=== PATIENT | female | born 1930 | race Caucasian/White ===

== ENCOUNTER → 2017-09-20 | Outpatient (CLI) | payer OTHER ==
[~2017-09-20] MED LIST: ALLO100 PO; AMLO5 PO; ATEN; ATEN100 PO; ATEN25; ATEN50; BUME2 PO; CALC.25 PO; CAND16; CAND32; CAND32 PO; CAND4; CETI5 PO; CLON.1 PO; CODACE30 PO; CYCL10 PO; DOXA1; DOXA4; Estradiol0.5 MG PO; FLUV20; FLUV40; FLUV80CR PO; FOLI400 PO; FURO40 PO; Ferosul325 MG PO; GABA300 PO; GAVILAX17 GM PO; HYDCHL12.5; HYDR1TAB94 PO; HYDRA25 PO; MEDR2.5 PO; METF500; NEBI5 PO; NITR100 PO; OLME20; OLME20 PO; POTA10T PO; Prilosec Otc20 MG PO; Pyridium200 MG PO; ROXICODONE5 MG PO; SULTRIDS PO; TRAM50; TRAZ50 PO; WARF1; WARF2.5 PO; WARF5 PO; ZOLP10 PO; Zofran4 MG PO; [UNRECOGNIZED DRUG - REMARK]
[2017-09-20 16:34] LABS: Hematocrit 33.4 % (33.0-51.0); Hemoglobin 10.9 g/dL (11.5-16.0)
[2017-09-20 18:05] LABS: Albumin, Blood 3.9 g/dL (3.4-5.0); Anion Gap 11 mmol/L (6-16); Blood Urea Nitrogen 31 mg/dL (8-24); Bun/Creatinine Ratio 18.5 (12.0-20.0); CO2, Blood 20 mmol/L (21-32); Calcium, Blood 9.1 mg/dL (8.5-10.1); Chloride, Blood 103 mmol/L (98-108); Creatinine, Blood 1.68 mg/dL (0.40-1.00); Glomerular Filtration Rate 31 (60-); Glucose, Blood 151 mg/dL (70-99); Phosphorus, Blood 3.6 mg/dL (2.5-4.9); Potassium, Blood 4.4 mmol/L (3.5-5.5); Sodium, Blood 134 mmol/L (136-145)
== END | disposition home or self-care (01) ==
LOC: OLS 13:24
PROVIDERS: Internal Medicine
DX: N18.3 Chronic kidney disease, stage 3 (moderate) (principal); D63.1 Anemia in chronic kidney disease
CPT/HCPCS: 36415; 80069; 83970; 85014; 85018

== ENCOUNTER → 2018-01-24 | Outpatient (CLI) | payer OTHER ==
[2018-01-24 15:47] LABS: Hematocrit 30.9 % (33.0-51.0); Hemoglobin 10.4 g/dL (11.5-16.0)
[2018-01-24 16:15] LABS: Albumin, Blood 3.8 g/dL (3.4-5.0); Anion Gap 8 mmol/L (6-16); Blood Urea Nitrogen 20 mg/dL (8-24); Bun/Creatinine Ratio 13.5 (12.0-20.0); CO2, Blood 27 mmol/L (21-32); Calcium, Blood 9.5 mg/dL (8.5-10.1); Chloride, Blood 97 mmol/L (98-108); Creatinine, Blood 1.48 mg/dL (0.40-1.00); Glomerular Filtration Rate 35 (60-); Glucose, Blood 110 mg/dL (70-99); Potassium, Blood 4.7 mmol/L (3.5-5.5); Sodium, Blood 132 mmol/L (136-145)
[2018-01-24 16:16] LABS: Percent Saturation 33.5 % (15.0-50.0)
== END ==
LOC: LAB SHORT 13:44
PROVIDERS: Internal Medicine
DX: N18.3 Chronic kidney disease, stage 3 (moderate) (principal); D63.1 Anemia in chronic kidney disease
CPT/HCPCS: 36415; 80069; 82728; 83540; 83550; 85014; 85018

== ENCOUNTER 2018-04-17 15:17 | Emergency (ER) | payer OTHER ==
[~2018-04-17] VITALS: Ht 152.4 cm; Wt 72.6 kg
== END 2018-04-17 17:04 | disposition home or self-care (01) ==
LOC: ER 15:17
DX: S62.324A Displaced fracture of shaft of fourth metacarpal bone, right hand, initial encounter for closed fracture (principal); W18.11XA Fall from or off toilet without subsequent striking against object, initial encounter; Z88.2 Allergy status to sulfonamides; Z88.5 Allergy status to narcotic agent; Z79.899 Other long term (current) drug therapy; I10 Essential (primary) hypertension; I48.91 Unspecified atrial fibrillation
CPT/HCPCS: 29125; 73110; 73130; 99283-25

== ENCOUNTER → 2018-09-12 | Outpatient (CLI) | payer OTHER ==
[2018-09-12 17:00] LABS: Bilirubin, Urine Neg (Neg); Blood, Urine 1+ (Neg); Glucose Qualitative, Urine Neg (Neg); Ketones, Urine Neg (Neg); Leukocyte Esterase, Urine 2+ (Neg); Nitrite, Urine Pos (Neg); Protein, Urine 2+ (Neg); Specific Gravity, Urine 1.015 (1.003-1.022); Urobilinogen, Urine NORM (Normal)
[2018-09-12 17:28] LABS: Appearance, Urine Hazy (Clear); Color, Urine Yellow (P-Yellow)
[2018-09-12 17:29] LABS: Squamous Epithelial Cells Few /hpf (Few)
[2018-09-12 17:30] LABS: Bacteria Few /hpf
== END | disposition home or self-care (01) ==
LOC: LAB SHORT 16:29 → LAB 16:29
PROVIDERS: Registered Nurse
DX: N39.0 Urinary tract infection, site not specified (principal)
CPT/HCPCS: 81001; 87077; 87086; 87186

== ENCOUNTER → 2018-10-02 | Outpatient (CLI) | payer OTHER | END | disposition home or self-care (01) | LOC: LAB SHORT 14:11 → LAB 14:11 → LAB FUT 10-02 09:35 | DX: R19.7 Diarrhea, unspecified (principal); I12.9 Hypertensive chronic kidney disease with stage 1 through stage 4 chronic kidney disease, or unspecified chronic kidney disease; N18.3 Chronic kidney disease, stage 3 (moderate) | CPT/HCPCS: 87015; 87045; 87046; 87177; 87205; 87209; 87493; 87899 ==

== ENCOUNTER 2019-01-28 13:34 | Emergency (ER) | payer OTHER ==
[~2019-01-28] VITALS: Ht 162.6 cm; Wt 68.0 kg
[~2019-01-28 13:34] MED LIST changes: -ALLO100 PO; -AMLO5 PO; -Estradiol0.5 MG PO; -FOLI400 PO; -Ferosul325 MG PO; -GABA300 PO; -GAVILAX17 GM PO; -HYDRA25 PO; +LOPE2C PO; -MEDR2.5 PO; -NEBI5 PO; -OLME20 PO; -POTA10T PO; +TYLECOD3 PO
[2019-01-28] MEDS ORDERED: BUDE6HFA INH (14:23)
[2019-01-28] MEDS ORDERED: ALBU90OI6 INH (14:23)
[2019-01-28] MEDS ORDERED: MIRT15ST PO (14:23)
[2019-01-28] MEDS ORDERED: LEVSOD100 PO (14:24)
[2019-01-28] MEDS ORDERED: TYLECOD3 PO (14:24)
[2019-01-28] MEDS ORDERED: Zocor20 MG PO (14:27)
[2019-01-28] MEDS ORDERED: OMEPRAZOLE20 MG PO (14:27)
[2019-01-28 14:47] LABS: BASOPHILS ABSOLUTE AUTO 0.06 K/mm3 (0.00-0.23); BASOPHILS PERCENT AUTO 1 % (0-2); EOSINOPHILS ABSOLUTE AUTO 0.19 K/mm3 (0.00-0.68); EOSINOPHILS PERCENT AUTO 3 % (0-6); Hematocrit 31.2 % (33.0-51.0); Hemoglobin 10.3 g/dL (11.5-16.0); IMMATURE GRAN ABSOLUTE AUTO 0.02 K/mm3 (0.00-0.10); IMMATURE GRAN PERCENT AUTO 0 % (0-1); LYMPHOCYTES ABSOLUTE AUTO 1.94 K/mm3 (0.84-5.20); LYMPHOCYTES PERCENT AUTO 29 % (21-46); MONOCYTES PERCENT AUTO 11 % (4-13); Mean Corpuscular HGB 34.9 pg (26.0-34.0); Mean Corpuscular Volume 106 fL (80-100); Mean Platelet Volume 10.7 fL (9.1-12.4); NEUTROPHILS ABSOLUTE AUTO 3.74 K/mm3 (1.96-9.15); NEUTROPHILS PERCENT AUTO 56 % (41-73); Platelet Count 364 K/mm3 (150-400); RDW Coefficient Variation 14.7 % (11.7-14.2); RDW Standard Deviation 57.1 fL (35.1-46.3); Red Blood Cell Count 2.95 M/mm3 (3.80-5.20); White Blood Cell Count 6.65 K/mm3 (4.00-11.30)
[2019-01-28 15:17] LABS: Alanine Aminotransfer (ALT/SGP 19 U/L (12-78); Albumin, Blood 3.9 g/dL (3.4-5.0); Albumin/Globulin Ratio 1.1 (0.8-1.8); Alk Phos 60 U/L (50-136); Anion Gap 7 mmol/L (6-16); Aspartate Aminotrans (AST/SGOT 17 U/L (12-37); Bilirubin, Total 1.1 mg/dL (0.1-1.0); Blood Urea Nitrogen 30 mg/dL (8-24); Bun/Creatinine Ratio 20.7 (12.0-20.0); CO2, Blood 24 mmol/L (21-32); Calcium, Blood 9.4 mg/dL (8.5-10.1); Chloride, Blood 103 mmol/L (98-108); Creatinine, Blood 1.45 mg/dL (0.40-1.00); Globulin, Blood 3.7 g/dL (2.2-4.0); Glomerular Filtration Rate 36 (60-); Glucose, Blood 121 mg/dL (70-99); Magnesium, Blood 2.1 mg/dL (1.6-2.4); Potassium, Blood 4.2 mmol/L (3.5-5.5); Sodium, Blood 134 mmol/L (136-145); Total Protein, Blood 7.6 g/dL (6.4-8.2); Troponin I <0.015 ng/mL (0.000-0.040)
[2019-01-28] MEDS ORDERED: Ativan0.5 MG PO (22:54)
== END 2019-01-28 23:15 | disposition home or self-care (01) ==
LOC: ER 13:34
PROVIDERS: Physician Assistant
DX: R06.00 Dyspnea, unspecified (principal); R00.1 Bradycardia, unspecified; Z88.2 Allergy status to sulfonamides; Z88.5 Allergy status to narcotic agent; Z79.899 Other long term (current) drug therapy; I12.9 Hypertensive chronic kidney disease with stage 1 through stage 4 chronic kidney disease, or unspecified chronic kidney disease; N18.3 Chronic kidney disease, stage 3 (moderate); I48.91 Unspecified atrial fibrillation; E78.5 Hyperlipidemia, unspecified
CPT/HCPCS: 36415; 71045; 71260; 80053; 83735; 83880; 84484; 85025; 85379; 93005; 93010; 96360-59; 99285-25; J7030; Q9967

== ENCOUNTER 2019-02-07 11:11 | Observation (INO) | payer OTHER ==
[~2019-02-07] VITALS: Ht 162.6 cm; Wt 67.0 kg
[~2019-02-07 11:11] MED LIST changes: +ALBU90OI6 INH; +Ativan0.5 MG PO; +BUDE6HFA INH; +LEVSOD100 PO; +MIRT15ST PO; +OMEPRAZOLE20 MG PO; +Zocor20 MG PO
[2019-02-07 13:35] LABS: BASOPHILS ABSOLUTE AUTO 0.02 K/mm3 (0.00-0.23); BASOPHILS PERCENT AUTO 0 % (0-2); EOSINOPHILS ABSOLUTE AUTO 0.09 K/mm3 (0.00-0.68); EOSINOPHILS PERCENT AUTO 2 % (0-6); Hematocrit 28.5 % (33.0-51.0); Hemoglobin 9.6 g/dL (11.5-16.0); IMMATURE GRAN ABSOLUTE AUTO 0.02 K/mm3 (0.00-0.10); IMMATURE GRAN PERCENT AUTO 0 % (0-1); LYMPHOCYTES ABSOLUTE AUTO 1.34 K/mm3 (0.84-5.20); LYMPHOCYTES PERCENT AUTO 27 % (21-46); MONOCYTES ABSOLUTE AUTO 0.65 K/mm3 (0.16-1.47); MONOCYTES PERCENT AUTO 13 % (4-13); Mean Corpuscular HGB 34.7 pg (26.0-34.0); Mean Corpuscular HGB Conc 33.7 g/dL (31.5-36.5); Mean Platelet Volume 9.9 fL (9.1-12.4); NEUTROPHILS ABSOLUTE AUTO 2.78 K/mm3 (1.96-9.15); NEUTROPHILS PERCENT AUTO 57 % (41-73); Platelet Count 337 K/mm3 (150-400); RDW Coefficient Variation 14.6 % (11.7-14.2); RDW Standard Deviation 54.4 fL (35.1-46.3); Red Blood Cell Count 2.77 M/mm3 (3.80-5.20)
[2019-02-07 13:36] LABS: Mean Corpuscular Volume 103 fL (80-100)
[2019-02-07 13:58] LABS: Albumin, Blood 3.6 g/dL (3.4-5.0); Bilirubin, Total 1.1 mg/dL (0.1-1.0); Bun/Creatinine Ratio 17.9 (12.0-20.0); Calcium, Blood 8.8 mg/dL (8.5-10.1); Creatinine, Blood 1.51 mg/dL (0.40-1.00); Globulin, Blood 3.6 g/dL (2.2-4.0); Potassium, Blood 3.8 mmol/L (3.5-5.5); Total Protein, Blood 7.2 g/dL (6.4-8.2); Troponin I 0.031 ng/mL (0.000-0.040)
[2019-02-07] MEDS ORDERED: ALLO100 PO (15:39)
[2019-02-07] MEDS ORDERED: AMLO5 PO (15:39)
[2019-02-07] MEDS ORDERED: MEDR2.5 PO (15:40)
[2019-02-07] MEDS ORDERED: Estradiol0.5 MG PO (15:40)
[2019-02-07] MEDS ORDERED: POTA10T PO (15:41)
[2019-02-07] MEDS ORDERED: NEBI10 PO (15:42)
[2019-02-07] MEDS ORDERED: OLME20 PO (15:42)
[2019-02-07] MEDS ORDERED: GABA300 PO (15:43)
[2019-02-07] MEDS ORDERED: FOLI400 PO (15:44)
[2019-02-07] MEDS ORDERED: Ferosul325 MG PO (15:44)
[2019-02-07] MEDS ORDERED: GAVILAX17 GM PO (15:45)
[2019-02-07] MEDS ORDERED: HYDRA25 PO (15:45)
[2019-02-07] MEDS ORDERED: XARELTO15 MG PO (15:46)
[2019-02-07] MEDS ORDERED: PEDIALYTE PO (15:49)
[2019-02-07] MEDS ORDERED: FURO40 PO (15:55)
--- NOTE | 2019-02-07 17:42 | NUR ---
ADMIT NOTE RECEIVED REPROT FROM NEEL DAVIDSON RN IN ED. PT TO ROOM VIA GURNEY, SBA TRANSFER TO BED. PT AND FAMILY ORIENTED TO ROOM AND CALL LIGHT. PT EDUCATED ON FALL RISK AND THE NEED TO CALL FOR ASSISTANCE. PT A&Ox4. CALM AND COOPERATIVE [facility]. PT RESTING IN BED, ON BEDREST PER ORDER, SBA TO BSC. PT DENIES PAIN, SOB, DIZZINESS, N/V DURING SHIFT. PT REPROTS INCONTINENTS AT HOME, DEPENDS IN PLACE. PT REPROTS NUMBNESS IN BILATERAL FEET/TOES, STATES AT BASELINE. 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 HTN NOTED, WILL CONTINUE TO MONITOR AND MEDICATION PER EMAR. PT ON RA, LS CLEAR, DIM IN BASES, BREATHING EVEN AND UNLABORED. PT DENEIS CHEST PRESSURE. TRACE EDEMA IN BLE KNEE DOWN. OTHER VSS NO OTHER ACUTE CHANGES NOTED DURING SHIFT
--- NOTE | 2019-02-07 17:48 | NUR ---
BLOOD CONSENT PT DECLINES BLOOD PRODUCTS, HOWEVER HAS A LIST IN THE CHART OF CERTAIN TYPE OF BLOOD COMPOENTS/MEDICATIONS THAT ARE ACCETPABLE.
--- NOTE | 2019-02-07 19:05 | NUR ---
Spoke with Dr. Alexander at 1645 today, for cardiology consultation request. He stated that he would not be able to do a pacemaker today, nor over the weekend, and that Dr. Ravi is not design studio consultant, either. Dr. Alexander said that he would call Dr. Husain to discuss the pt with her.
[2019-02-08 04:56] LABS: BASOPHILS ABSOLUTE AUTO 0.05 K/mm3 (0.00-0.23); BASOPHILS PERCENT AUTO 1 % (0-2); EOSINOPHILS PERCENT AUTO 3 % (0-6); Hematocrit 27.2 % (33.0-51.0); Hemoglobin 9.3 g/dL (11.5-16.0); IMMATURE GRAN ABSOLUTE AUTO 0.02 K/mm3 (0.00-0.10); IMMATURE GRAN PERCENT AUTO 0 % (0-1); LYMPHOCYTES ABSOLUTE AUTO 2.23 K/mm3 (0.84-5.20); LYMPHOCYTES PERCENT AUTO 35 % (21-46); MONOCYTES ABSOLUTE AUTO 0.93 K/mm3 (0.16-1.47); MONOCYTES PERCENT AUTO 15 % (4-13); Mean Corpuscular HGB 34.4 pg (26.0-34.0); Mean Corpuscular HGB Conc 34.2 g/dL (31.5-36.5); Mean Corpuscular Volume 101 fL (80-100); Mean Platelet Volume 10.3 fL (9.1-12.4); NEUTROPHILS ABSOLUTE AUTO 2.89 K/mm3 (1.96-9.15); NEUTROPHILS PERCENT AUTO 46 % (41-73); Platelet Count 345 K/mm3 (150-400); RDW Coefficient Variation 14.6 % (11.7-14.2); RDW Standard Deviation 53.8 fL (35.1-46.3); White Blood Cell Count 6.32 K/mm3 (4.00-11.30)
--- NOTE | 2019-02-08 05:06 | NUR ---
SHIFT SUMMARY: PT IS ALERT AND ORIENTED. PT IS CALM AND COOPERATIVE WITH CARE. PT CALLS APPROPRIATELY. PT IS A STANDBY ASSIST TO THE BSC. PT REPORTS MILD CHEST PRESSURE, MEDICATING PER EMAR. NO CHANGES ON TELE, HR CONTINUES TO BE IN THE HIGH 30'S AND LOW 40'S. PT'S BP SLIGHTLY ELEVATED, GAVE ONE DOSE OF PRN HYDRALAZINE. PT DENIES NAUSEA, VOMITING, AND SOB. NO ACUTE CHANGES OR COMPLICATIONS THIS SHIFT. WILL REPORT TO DAY NURSE.
[2019-02-08 05:32] LABS: Bun/Creatinine Ratio 20.1 (12.0-20.0); Calcium, Blood 8.8 mg/dL (8.5-10.1); Creatinine, Blood 1.64 mg/dL (0.40-1.00); Potassium, Blood 3.7 mmol/L (3.5-5.5)
--- NOTE | 2019-02-08 09:33 | NUR ---
ASSUMED CARE OF PATIENT AT 0700. PLANS TO HAVE PACEMAKER PLACED THIS AM. PT LEFT ROOM AT APPPROX 0920 TO [employer]PER[employer]. PT A&Ox4. CALM AND COOPERATIVE WITH CARE. PT RESTINING IN BED THIS AM, UP WITH 1 PERSON ASSIST TO BSC. PT REPORTS CHEST PRESSURE 2/10, STATES SHE HAS BEEN GETTING CHEST PRESSURE AT NIGHT FOR 2 WEEKS OR SO. DENIES SOB AND N/V. 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 VSS. WILL CONTINUE TO MONITOR.
--- NOTE | 2019-02-08 11:46 | NUR ---
Advance directives education attempted. Upon receiving a referral request for advance directive education, I entered patient's room and found patient's room is full of family members. I introduce myself and explain the purpose of my visit and patient's son immediately states that they are Je[employer]es and have no need for information about advance directives and that all the information that is needed for the patient has already been discussed with the medical staff. Advance directive education denied.
--- NOTE | 2019-02-08 11:59 | NUR ---
PT BACK TO ROOM FROM PACEMAKER PLACEMENT. INCISION NOTED AT LEFT UPPER CHEST, WITH CLEAR DRESSING, SCANT AMOUNT OF SANGINOUS DRAINAGE NOTED. PT ALERT AND ORIENTED. PT STATES SHE IS HUNGRY. BREATHING EVEN AND UNLABORED, >92% ON RA. DENIES PAIN. BP ELEVATED, OTHER VSS. WILL CONTINUE TO MONITOR.
[2019-02-08 14:44] LABS: Percent Saturation 22.2 % (15.0-50.0)
[2019-02-08] MEDS ORDERED: FURO20 PO (16:39)
[2019-02-08] MEDS ORDERED: METO25ER PO (16:39)
--- NOTE | 2019-02-08 18:08 | NUR ---
DISCHARGE SUMMARY PT A&Ox4. CALM AND COOPERATIVE WITH CARE. 1 PERSON ASSIST TO BSC. REPORTS DISCOMFORT AFTER PACEMAKER PLACEMENT, MEDICATED X1. PT DENIES SOB AND N/V. PACEMAKER PLACE, INCISION ON LEFT UPPER CHEST, TEGADERM COVERED, SMALL AMOUNT OF SANGUINOUS DRAINAGE PRESENT. PT RECEIVED SECOND DOSE OF IV ANTIBIOTICS THIS EVENING. PT 100%PACED PER [employer], RATE 60'S. ELEVATED BP, TRENDING DOWN, MEDICATED PER EMAR. OTHER VSS. NO OTHER ACUTE CHANGES DURINGS SHIFT. EDUCATED PT ON DISCHARGE INSTRUCTIONS MEDICATIONS AND FOLLOW UP APPOINTMENTS. PT TO CALL PCP OFFICE MONDAY OFFICE CLOSED. DISCUSSED WOUND SITE CARE WITH PATIENT AND FAMILY, MEDICATION CHANGES, MONITORING FOR SIGNS OF INFECTION. PRESCRIPTIONS FAXED TO [facility] PER PT REQUEST. PT LEFT ROOM VIA WHEELCHAIR AT 1739. PT STABLE UPON DISCHARGE.
== END 2019-02-08 17:47 | disposition home or self-care (01) ==
LOC: ER 11:11 → PCU 11:12 → ER 15:11 → PCU 15:11
PROVIDERS: Emergency Medicine; Internal Medicine; ADMIT Internal Medicine
DX: I44.1 Atrioventricular block, second degree (principal); I13.0 Hypertensive heart and chronic kidney disease with heart failure and stage 1 through stage 4 chronic kidney disease, or unspecified chronic kidney disease; I50.9 Heart failure, unspecified; N18.3 Chronic kidney disease, stage 3 (moderate); I48.0 Paroxysmal atrial fibrillation; D53.9 Nutritional anemia, unspecified; E78.5 Hyperlipidemia, unspecified; E03.9 Hypothyroidism, unspecified; Z88.2 Allergy status to sulfonamides; Z88.5 Allergy status to narcotic agent; Z79.899 Other long term (current) drug therapy; Z87.891 Personal history of nicotine dependence
CPT/HCPCS: 33208; 36415; 71046; 80048; 80053; 82607; 82728; 82746; 83540; 83550; 83880; 84443; 84484; 85025; 93005; 93010; 93306; 96374; 96375; 99152; 99153; 99285-25; C1785; C1898; G0378; J0360; J0690; J1644; J1650; J1940; J2250; J3010; J7030; J7040

== ENCOUNTER 2019-03-04 23:36 | Emergency (ER) | payer OTHER ==
[~2019-03-04] VITALS: Ht 162.6 cm; Wt 62.6 kg
[~2019-03-04 23:36] MED LIST changes: +ALLO100 PO; +AMLO5 PO; +Estradiol0.5 MG PO; +FOLI400 PO; +FURO20 PO; +Ferosul325 MG PO; +GABA300 PO; +GAVILAX17 GM PO; +HYDRA25 PO; +MEDR2.5 PO; +METO25ER PO; +NEBI10 PO; +OLME20 PO; +PEDIALYTE PO; +POTA10T PO; +XARELTO15 MG PO
[2019-03-04 23:58] LABS: BASOPHILS ABSOLUTE AUTO 0.05 K/mm3 (0.00-0.23); BASOPHILS PERCENT AUTO 0 % (0-2); EOSINOPHILS ABSOLUTE AUTO 0.25 K/mm3 (0.00-0.68); EOSINOPHILS PERCENT AUTO 2 % (0-6); Hemoglobin 10.3 g/dL (11.5-16.0); IMMATURE GRAN ABSOLUTE AUTO 0.04 K/mm3 (0.00-0.10); IMMATURE GRAN PERCENT AUTO 0 % (0-1); LYMPHOCYTES ABSOLUTE AUTO 2.25 K/mm3 (0.84-5.20); LYMPHOCYTES PERCENT AUTO 20 % (21-46); MONOCYTES PERCENT AUTO 8 % (4-13); Mean Corpuscular HGB 34.2 pg (26.0-34.0); Mean Corpuscular HGB Conc 33.2 g/dL (31.5-36.5); Mean Corpuscular Volume 103 fL (80-100); Mean Platelet Volume 9.7 fL (9.1-12.4); NEUTROPHILS ABSOLUTE AUTO 7.94 K/mm3 (1.96-9.15); NEUTROPHILS PERCENT AUTO 70 % (41-73); Platelet Count 402 K/mm3 (150-400); RDW Coefficient Variation 14.5 % (11.7-14.2); RDW Standard Deviation 53.9 fL (35.1-46.3); Red Blood Cell Count 3.01 M/mm3 (3.80-5.20); White Blood Cell Count 11.43 K/mm3 (4.00-11.30)
[2019-03-05 00:14] LABS: International Normalized Ratio 1.11; Prothrombin Time Results 11.7 Sec (9.7-11.5)
[2019-03-05 00:15] LABS: Source, Urine Clean Catch
[2019-03-05 00:21] LABS: Albumin, Blood 3.5 g/dL (3.4-5.0); Albumin/Globulin Ratio 0.9 (0.8-1.8); Bilirubin, Total 1.2 mg/dL (0.1-1.0); Bun/Creatinine Ratio 14.7 (12.0-20.0); Calcium, Blood 9.2 mg/dL (8.5-10.1); Creatinine, Blood 1.29 mg/dL (0.40-1.00); Globulin, Blood 4.1 g/dL (2.2-4.0); Total Protein, Blood 7.6 g/dL (6.4-8.2); Troponin I 0.022 ng/mL (0.000-0.040)
[2019-03-05 00:24] LABS: Bilirubin, Urine Neg (Neg); Blood, Urine 1+ (Neg); Glucose Qualitative, Urine Neg (Neg); Ketones, Urine Neg (Neg); Leukocyte Esterase, Urine Neg (Neg); Nitrite, Urine Neg (Neg); Protein, Urine 3+ (Neg); Urobilinogen, Urine NORM (Normal)
[2019-03-05 00:29] LABS: Appearance, Urine Clear (Clear); Color, Urine Yellow (P-Yellow)
[2019-03-05 00:33] LABS: Bacteria Not Seen /hpf; Red Blood Cells, Urine 0-2 /hpf (0-2); Squamous Epithelial Cells Not Seen /hpf (Few); White Blood Cells, Urine Rare /hpf (0-5)
[2019-03-05] MEDS ORDERED: PANT20 PO (03:34)
== END 2019-03-05 04:50 | disposition home or self-care (01) ==
LOC: ER 23:36
PROVIDERS: Emergency Medicine
DX: S22.089A Unspecified fracture of T11-T12 vertebra, initial encounter for closed fracture (principal); Z88.2 Allergy status to sulfonamides; Z79.899 Other long term (current) drug therapy; I12.9 Hypertensive chronic kidney disease with stage 1 through stage 4 chronic kidney disease, or unspecified chronic kidney disease; N18.3 Chronic kidney disease, stage 3 (moderate); I48.91 Unspecified atrial fibrillation; E78.5 Hyperlipidemia, unspecified; W19.XXXA Unspecified fall, initial encounter
CPT/HCPCS: 71045; 72128; 72192; 80053; 81001; 83605; 83690; 84484; 85025; 85610; 93005; 93010; 96374; 99284-25; A9270; C9113